=== PATIENT | male | born 1940 | race Caucasian/White ===

== ENCOUNTER 2018-08-05 12:29 | Observation (INO) | payer OTHER ==
--- NOTE | 2018-08-05 13:32 | ER ---
Nurse's Notes [facility] Name: Bronson Araujo Age: 78 yrs Sex: Male : 1940 Arrival Date: 08/05/2018 Time: 12:31 Bed 15 Private MD: Diagnosis: Neutropenia;Possible PICC line infection;Cellulitis of right upper limb Presentation: 08/05 12:41 Presenting complaint: Sent by Dr. Valdes for abnormal lab results. Pt does not know what hb labs were abnormal, told to to ED. Transition of care: patient was not received from another setting of care. Onset of symptoms was August 05, 2018. Risk Assessment: Do you want to hurt yourself or someone else? Patient reports no desire to harm self or others. Care prior to arrival: None. 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 - Social history:: Smoking status: Patient/guardian denies using tobacco. - Ebola Screening: : No symptoms or risks identified at this time. - Family history:: not pertinent. - Hospitalizations: : No recent hospitalization is reported. Screenin:24 Abuse screen: Denies threats or abuse. Denies injuries from another. Nutritional aj screening: No deficits noted. Tuberculosis screening: No symptoms or risk factors identified. Fall Risk None identified. Assessment: 13:24 General: Appears in no apparent distress. comfortable, Behavior is calm, cooperative, aj appropriate for age. Pain: Denies pain. Neuro: Level of Consciousness is awake, alert, obeys commands, Oriented to person, place, time, situation, Appropriate for age. Respiratory: Airway is patent Respiratory effort is even, unlabored, Respiratory pattern is regular, symmetrical. Derm: Skin is intact, is healthy with good turgor, Skin is pink, warm \T\ dry. normal. Vital Signs: 12:43 BP 127 / 63; Pulse 64; Resp 14; Temp 97.9; Pulse Ox 100% on R/A; Weight 80.74 kg; hb Height 6 ft. 2 in. (187.96 cm); Pain 0/10; 12:43 Body Mass Index 22.85 (80.74 kg, 187.96 cm) hb ED Course: 12:31 Patient arrived in ED. as 12:32 Preston Stokes MD is Attending Physician. rn 12:43 Triage completed. hb 12:44 Arm band placed on left wrist. hb 13:23 Little Tracy RN is Primary Nurse. aj 13:24 Patient has correct armband on for positive identification. aj 13:24 Inserted saline lock: 22 gauge in right forearm, using aseptic technique. Blood aj collected. Accessed PICC line. Site reddened. Good blood return. Flushes easily. 13:30 Christopher Mack MD is Hospitalizing Provider. rn 16:49 Report given to Sarah IZAGUIRRE. aj 16:49 No provider procedures requiring assistance completed. Patient admitted, IV remains in aj place. Administered Medications: No medications were administered Outcome: 13:31 Decision to Hospitalize by Provider. rn 16:55 Patient left the ED. aj Signatures: Little Tracy, RN Pat Bullock as Preston Stokes MD MD rn Baxter, Heather, RN RN hb
--- NOTE | 2018-08-05 13:32 | EDPHYS ---
Physician Documentation [facility] Name: Bronson Araujo Age: 78 yrs Sex: Male : 1940 Arrival Date: 08/05/2018 Time: 12:31 Bed 15 Private MD: ED Physician Preston Stokes HPI: 08/05 13:06 This 78 yrs old Male presents to ER via Ambulatory with complaints of redness rn around PICC line. 13:[address] Self for evaluation and admission to rule out bacteremia and line rn infection. Has had PICC for 1 year, being treated for AML, + low WBC, last chemo was 1 month ago, no fever, feels tired, but no acute changes. + mild redness and drainage around PICC. . Onset: The symptoms/episode began/occurred at an unknown time. Severity of symptoms: At their worst the symptoms were mild in the emergency department the symptoms are unchanged. The patient has not experienced similar symptoms in the past. The patient has been recently seen by a physician:. 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 - Social history:: Smoking status: Patient/guardian denies using tobacco. - Ebola Screening: : No symptoms or risks identified at this time. - Family history:: not pertinent. - Hospitalizations: : No recent hospitalization is reported. ROS: 13:06 Constitutional: Negative for fever, chills Eyes: Negative for injury, pain, redness, rn and discharge, Neck: Negative for injury, pain, and swelling, Cardiovascular: Negative for chest pain, palpitations, and edema, Respiratory: Negative for shortness of breath, cough, wheezing, and pleuritic chest pain, Abdomen/GI: Negative for abdominal pain, nausea, vomiting, diarrhea, and constipation, MS/Extremity: Negative for injury and deformity, Skin: + redness around RUE PICC line Neuro: Negative for headache, weakness, numbness, tingling, and seizure. Exam: 13:06 Constitutional: This is a well developed, well nourished patient who is awake, alert, rn and in no acute distress. Head/Face: Normocephalic, atraumatic. ENT: MMM Respiratory: No increased work of breathing, no retractions or nasal flaring. Skin: Warm, mild erythema and minimal drainage surrounding RUE pICC with no active drainage, just in bandages. No swelling of RUE compared to LUE. NO petechiae. MS/ Extremity: Pulses equal, no cyanosis. Neurovascular intact. Full, normal range of motion. Equal circumference. Vital Signs: 12:43 BP 127 / 63; Pulse 64; Resp 14; Temp 97.9; Pulse Ox 100% on R/A; Weight 80.74 kg; hb Height 6 ft. 2 in. (187.96 cm); Pain 0/10; 12:43 Body Mass Index 22.85 (80.74 kg, 187.96 cm) hb MDM: 12:32 Patient medically screened. rn 13:29 Differential Diagnosis sepsis, bacteremia, line infection. Data reviewed: vital signs, rn nurses notes, old medical records, lab test result(s), and as a result, I will admit patient. Counseling: I had a detailed discussion with the patient and/or guardian regarding: the historical points, exam findings, and any diagnostic results supporting the discharge/admit diagnosis, lab results, the need for further work-up and treatment in the hospital. Admission orders: after a detailed discussion of the patient's condition and case, the admit orders are written by me. 15:45 ED course: Dr Mack requests vanc/cefepime until cultures return. Orders placed in rn [facility].. 08/05 12:59 Order name: CBC with Diff rn 08/05 12:59 Order name: Basic Metabolic Panel; Complete Time: 15:33 rn 08/05 12:59 Order name: IV Start; Complete Time: 13:24 rn 08/05 12:59 Order name: Blood Culture Adult (2) rn 08/05 12:59 Order name: Procalcitonin; Complete Time: 15:33 rn 08/05 14:26 Order name: CBC Smear Scan EDMS Administered Medications: No medications were administered Disposition: 08/05/18 13:31 Hospitalization ordered by Christopher Mack for Inpatient Admission. Preliminary diagnosis are Neutropenia, Possible PICC line infection, Cellulitis of right upper limb. - Bed requested for Telemetry/MedSurg (Inpatient). - Status is Inpatient Admission. aj - Condition is Stable. - Problem is new. - Symptoms are unchanged. UTI on Admission? No Signatures: Dispatcher [employer] EDMS Sarah Cary Little Hunter RN RN aj Nieto, Roman, MD MD rn Baxter, Heather, RN RN hb Corrections: (The following items were deleted from the chart) 16:30 13:31 Hospitalization Ordered by A Frederick EGAN for Inpatient Admission. Preliminary bd diagnosis is Neutropenia; Possible PICC line infection; Cellulitis of right upper limb. Bed requested for Telemetry/MedSurg (Inpatient). Status is Inpatient Admission. Condition is Stable. Problem is new. Symptoms are unchanged. UTI on Admission? No. rn 16:55 16:30 08/05/2018 13:31 Hospitalization Ordered by A Frederick EGAN for Inpatient Admission. aj Preliminary diagnosis is Neutropenia; Possible PICC line infection; Cellulitis of right upper limb. Bed requested for Telemetry/MedSurg (Inpatient). Status is Inpatient Admission. Condition is Stable. Problem is new. Symptoms are unchanged. UTI on Admission? No. bd
[2018-08-05 13:34] LABS: Absolute Lymphocytes (CBC) 0.5 K/uL (0.7-4.9); Absolute Monocytes 0.8 K/uL (0.1-1.3); Absolute Neutrophil 2.6 K/uL (1.8-8.0); Basophils % 0.4 % (0-1.3); Eosinophils % 0.1 % (0-4.4); Hematocrit 30.5 % (39.6-49.0); Lymphocytes % 13.1 % (15.3-44.8); MPV 8.8 fL (7.6-11.3); Monocytes % 20.3 % (3.3-12.3)
[2018-08-05 13:46] LABS: Potassium 3.4 mmol/L (3.5-5.1)
[2018-08-05 17:22] LABS: Anisocytosis 1+; Blood Morphology Comment NOTED (NOT SEEN); Macrocytosis 1+; Platelet Estimate ADEQ; Urine White Blood Cell Casts OK
[2018-08-05 17:23] LABS: Ovalocytes 1+
[2018-08-05] MEDS ORDERED: VANCOMYCIN/NS 1 gm 1 GM/250 ML BAG IVPB SCH (18:26)
[2018-08-05] MEDS ORDERED: CEFEPIME 1 GM/VIAL IV SCH (18:26)
[2018-08-05] MEDS ORDERED: ACETAMINOPHEN 500 MG TAB PO PRN (18:26)
[2018-08-05 18:49] VITALS: BMI 22.7
[2018-08-05] MEDS ORDERED: VANCOMYCIN 2 GM in NA CHLORIDE 0.9% 500 ML IVPB ONE (19:00)
[2018-08-05] MEDS ORDERED: PNEUMOCOCCAL VACCINE 0.5 ML IMVAC ONE (20:00)
[2018-08-05 21:32] VITALS: O2SAT 97
[2018-08-05 21:33] LABS: Urine Appearance CLEAR; Urine Bilirubin NEGATIVE (NEG); Urine Blood NEGATIVE (NEG); Urine Color YELLOW; Urine Glucose TRACE (NEG); Urine Protein NEGATIVE (NEG); Urine Specific Gravity 1.015 (1.005-1.030); Urine Urobilinogen 0.2 mg/dL (0.2-1.0)
[2018-08-05 21:34] LABS: Urine Microscopic Reflex NO UMIC
[2018-08-05] MEDS: CEFEPIME/SWI 1gm 10 ML IV SCH (22:00)
--- NOTE | 2018-08-06 04:26 | HP ---
Date of Admission: 08/05/2018 Chief Complaint: Redness around the PICC line site. History Of Present Illness: This is an 78-year-old male patient with acute myeloid leukemia who is u nder care of [facility] as well as our local oncologist Dr. Self. The patient was evaluated b y her today at the office and she saw some redness around the PICC line site so she did an outpatient venous Doppler which was done today, it was negative for DVT and subsequently she referred the patie nt to me. So after the patient was evaluated in the ER, I was contacted [facility]. The patient denies any fever, chills. No pain in or around the PICC line site area. Review of Systems: Dermatology: As mentioned above. All other systems reviewed and negative. Medications: List reviewed. Past Medical History: Significant for hypertension, type 2 diabetes mellitus, coronary artery diseas e, gastroesophageal reflux disease, diverticulosis, hyperlipidemia and acute myeloid leukemia, benign prostatic hypertrophy. Past Surgical History: Hemorrhoidectomy, coronary artery angioplasty and cataract surgery. Allergies: TO ZYRTEC CAUSING RASH. Family History: Significant for peripheral vascular disease, Alzheimer disease, osteoarthritis. Social History: Prior history of smoking, not at present time. Use of alcohol negative. Physical Examination: Vital signs: Height 6 feet 2 inches, weight 178 pounds, temperature 97.9, pulse 64, respiratory rate 14, blood pressure 127/63. General: Awake, alert, oriented, not in distress. HEENT: Head atraumatic, normocephalic. Conjunctivae nonerythematous. Sclerae white. Mouth, no thr ush or edema noted. Ears/Nose, no mass, lesion, discharge noted. Neck: Supple. No JVD, lymph nodes, bruit, thyromegaly noted. Lungs: Bilateral good equal air entry. Clear to auscultation. No rhonchi. No rales. Heart: Normal heart sounds, no murmur or gallop. Abdomen: Soft, bowel sounds normal. No guarding, rigidity, tenderness, mass, hepatosplenomegaly, dis tention, or bruit noted. Extremities: The right upper extremity has PICC line present. I did remove the PICC line dressing a nd examined the skin around the PICC line insertion site. No evidence of any purulent discharge, ble eding, or any swelling. Very minimum skin irritation noted but I am not convinced about any evidence of cellulitis or any other infectious process very likely at this point. I feel like it is more of a skin irritation from the dressing and no definite concerns or signs about cellulitis at this point. No leg edema. No calf tenderness. Skin: No rash, ulcer, cellulitis. Lymphatics: No lymph node enlargement in neck, supraclavicular, infraclavicular region. Neuro: No focal neurological deficit. Chest: Unremarkable. External Genitalia: Deferred. Rectal: Deferred. Laboratory Data: White count 3.9, hemoglobin 10.3 platelets 209. Sodium 142, potassium 3.4, chlorid e 108, bicarb 24, BUN 13, creatinine 0.95, glucose 162, Procalcitonin less than 0.05. Impression: 1.Rule out cellulitis, right upper extremity. 2.Rule out sepsis. 3.Acute myeloid leukemia. 4.Coronary artery disease. 5.Hypertension. 6.Type 2 diabetes mellitus. 7.Hyperlipidemia. 8.Gastroesophageal reflux disease. 9.Diverticulosis. 10.Benign prostatic hypertrophy. Plan: Admit the patient to hospital for further evaluation and management of this problem. The orquidea ent's white count is lot better today compared to what he normally runs lately. Blood culture was do ne from peripheral site as well as PICC line site in the emergency room. Empiric antibiotic was star marian. I will see him tomorrow for followup. I did instruct the charge nurse to go ahead and change t he PICC line dressing soon after I saw him, and I will see him tomorrow for followup. Details of susan n of treatment discussed with the patient. JOSE JUAN/MODL Voice ID: [id number]
[2018-08-06 05:24] LABS: Absolute Lymphocytes (CBC) 0.7 K/uL (0.7-4.9); Absolute Monocytes 0.9 K/uL (0.1-1.3); Absolute Neutrophil 2.1 K/uL (1.8-8.0); Basophils % 0.3 % (0-1.3); Eosinophils % 0.2 % (0-4.4); Hematocrit 27.8 % (39.6-49.0); Lymphocytes % 18.1 % (15.3-44.8); MPV 8.7 fL (7.6-11.3); Monocytes % 24.7 % (3.3-12.3); RBC Red Blood Cell Count 2.54 M/uL (4.33-5.43)
[2018-08-06 05:25] LABS: BUN Blood Urea Nitrogen 12 mg/dL (7-18); Bicarbonate 25 mmol/L (21-32); Glucose Level 97 mg/dL (74-106); Potassium 3.4 mmol/L (3.5-5.1); Sodium Level 144 mmol/L (136-145)
[2018-08-06] MEDS ORDERED: POTASSIUM CL SA 10 MEQ TAB PO ONE (08:10)
[2018-08-06 08:48] VITALS: BP 148/66; TEMP 97.2
[2018-08-06] MEDS: CEFEPIME/SWI 1gm 10 ML IV SCH (09:28)
[2018-08-06] MEDS ORDERED: VANCOMYCIN 1.5 GM in NA CHLORIDE 0.9% 500 ML IVPB SCH (14:00)
--- NOTE | 2018-08-07 05:38 | DS ---
Date of Discharge: 08/06/2018 Disposition: Discharged to go home. Physical Examination: HEENT: Unremarkable. Lungs: Clear to auscultation. No rhonchi or rales. Heart: Sounds normal. Abdomen: Soft. Bowel sounds normal. No guarding, rigidity, tenderness, or distention. Extremities: No leg edema. Right Arm: The patient has a PICC line present in the right upper extre mity. There is no evidence of any cellulitis. Dressing is present over PICC line and near the upper outer edge of the dressing, he has a very faint pink to brown color discoloration of the skin, not w arm to touch and this is due to skin irritation from the dressing. Discharge Medications And Instructions: 1.Continue all prior home medication. 2.Apply topical steroid cream, triamcinolone applied once a day as instructed and then cover with ga uze. The patient's and the patient both came to office after the discharge and I explained it t o them just to elevate the edge of the dressing where this dermatitis type of skin changes are and no t to remove any other dressing, so that way PICC line does not get exposed and apply the steroid crea m once a day, wait for 10-15 minutes, and then cover this area with gauze again, and they were instru cted to bring the patient back for followup in 1 week, so I can monitor this and the patient to [facility] w up with Dr. Self as per her instruction. Final Diagnoses: 1.Contact dermatitis, right arm. 2.Rule out cellulitis. 3.Acute myeloid leukemia. 4.Coronary artery disease. 5.Hypokalemia. 6.Hypertension. 7.Hyperlipidemia. 8.Neutropenia. Hospital Course: Mr. Arajuo is a very pleasant male patient, who is undergoing chemotherapy for acute myeloid leukemia and he goes to [facility] regularly as well as see his local oncologist, Dr. Denise lewis. Dr. Self sent him to the emergency room yesterday as she was concerned about possibilit y of cellulitis. Please see dictated H and P for more details. After the patient was evaluated in [facility] ER, he was admitted to the hospital. His white count was 3.8. He was started on empiric antibiot ic, vancomycin and cefepime. Blood culture was done from PICC line as well as peripheral IV site, an d the patient's condition overnight has remained stable. He has remained afebrile, and when I examin ed him yesterday and today, I did not have any concern about cellulitis. What I am concerned about alfredo mason has is contact dermatitis from dressing and I did discuss details with his oncologist, Dr. Elidia rowe. Details were discussed with the patient and the patient's and after discharge, as per instr uction, they came to our office and I instructed them how to apply topical steroid cream without expo sing PICC line. We will see him for followup next week. JOSE JUAN/MODL Voice ID: [id number] Report ID: [id number]
== END 2018-08-06 11:05 | disposition home or self-care (01) ==
LOC: ER 12:29 → ERHOLD 15:41 → INTOOBSV 15:41 → 4TH 17:07
PROVIDERS: ADMIT Internal Medicine; ATTEND Internal Medicine
DX: L25.9 Unspecified contact dermatitis, unspecified cause (principal); C92.00 Acute myeloblastic leukemia, not having achieved remission; D70.9 Neutropenia, unspecified; E87.6 Hypokalemia; E78.5 Hyperlipidemia, unspecified; E11.9 Type 2 diabetes mellitus without complications; I51.0 Cardiac septal defect, acquired; I10 Essential (primary) hypertension; K21.9 Gastro-esophageal reflux disease without esophagitis; K57.30 Diverticulosis of large intestine without perforation or abscess without bleeding; N40.0 Benign prostatic hyperplasia without lower urinary tract symptoms; Z87.891 Personal history of nicotine dependence
CPT/HCPCS: 96365; 96367; 87040 ×2; 85025 ×2; 80048 ×2; 36415; 81003; 84145; 99284; J0692 ×2; G0378 ×2